=== PATIENT | male | born 1990 | race Caucasian/White ===

== ENCOUNTER 2017-10-17 16:54 | Outpatient (CLI) | payer BC ==
[2017-10-17 17:48] LABS: #Basophils 0.1 thou/uL (0.0-0.2); #Eosinphils 0.5 thou/uL (0.0-0.7); #Lymphocytes 3.1 thou/uL (1.20-3.40); #Monocytes 1.2 thou/uL (0.11-0.59); #Neutrophils 7.1 thou/uL (1.40-6.50); %Basophils 0.8 % (0.0-1.0); %Eosinophils 3.8 % (0.0-10.0); %Lymphocytes 26.3 % (21.0-51.0); %Monocytes 9.6 % (0.0-10.0); Hematocrit 45.9 % (42.0-52.0); Mean Platelet Volume 6.3 fL (7.4-10.4); Red Blood Cell (RBC) Count 4.92 mill/uL (4.70-6.10); White Blood Cell (WBC) Count 11.9 thou/uL (4.8-10.8)
== END 2017-10-17 16:55 | disposition home or self-care (01) ==
LOC: LABBT 16:54
PROVIDERS: ATTEND Orthopaedic Surgery
DX: Z01.812 Encounter for preprocedural laboratory examination (principal); S43.431A Superior glenoid labrum lesion of right shoulder, initial encounter
CPT/HCPCS: 85025

== ENCOUNTER 2017-10-19 05:47 | Day surgery (SDC) | payer BC ==
[2017-10-17 17:11] VITALS: BMI 43.4
[2017-10-19] MEDS ORDERED: CEFAZOLIN/Water 2 GM/20 ML SYRINGE ONE (06:21)
[2017-10-19] MEDS ORDERED: Ropivacaine 0.2% HCl/PF 20 ML ONE (06:43)
[2017-10-19] MEDS ORDERED: Bupivacaine/Epinephrine 0.25% 30 ML VIAL ONE (06:43)
[2017-10-19] MEDS ORDERED: Fentanyl 100 MCG/2 ML VIAL ONE ×2 (06:43→07:22)
[2017-10-19] MEDS ORDERED: Midazolam HCl 2 mg/2 ml Vial ONE (06:43)
[2017-10-19] MEDS ORDERED: Ropivacaine 0.2% 550 ML 550 ML NERVE BLCK SCH (07:22)
[2017-10-19] MEDS ORDERED: traMADol HCl 50 MG TAB PO PRN ×2 (07:22)
[2017-10-19] MEDS ORDERED: Zolpidem Tartrate 5 MG TAB PO PRN (07:22)
[2017-10-19] MEDS ORDERED: Promethazine HCl 25 MG/ML VIAL IM PRN (07:22)
[2017-10-19] MEDS ORDERED: HYDROcodone/Acetaminophen 5/325 mg Tablet PO PRN ×2 (07:22)
[2017-10-19] MEDS ORDERED: Ondansetron HCl/PF 4 MG/2 ML Vial IVP PRN (07:22)
[2017-10-19] MEDS ORDERED: Fentanyl 100 MCG/2 ML VIAL IV PRN (07:23)
[2017-10-19] MEDS ORDERED: Ketorolac Tromethamine 30 MG/ML VIAL IVP SCH (12:00)
--- NOTE | 2017-10-19 12:57 | OP ---
DATE OF PROCEDURE: 10/19/2017 PREOPERATIVE DIAGNOSIS: Right shoulder anterior labral tear/Bankart lesion. POSTOPERATIVE DIAGNOSES: Right shoulder anterior labral tear/Bankart lesion. PROCEDURE PERFORMED: Right shoulder arthroscopy with arthroscopic Bankart repair. SURGEON: Abdullahi Arredondo M.D. EARLY CHILDHOOD EDUCATION COORDINATOR: None. BLOOD LOSS: Minimal. COMPLICATIONS: None. ANESTHESIA: He had general anesthetic, he also had a block. DISPOSITION: He did go to the recovery room in stable condition. INDICATIONS: A 26-year-old male who comes in with multiple episodes of dislocation and at this time wishing to have repair of this anterior labral lesion. DESCRIPTION OF PROCEDURE: After all appropriate consent forms were explained and signed, he was take n back to the operating room and at this time was given general anesthetic. Once the level of anesth esia was appropriate, he was rolled into the left lateral decubitus position with all bony prominence s well-padded. The arm was then suspended with 15 pounds in standard arthroscopic fashion. The [facility] shoulder and upper extremity prepped and draped in the standard surgical fashion. Bony anatomic la ndmarks were drawn out and subacromial space was infiltrated with Marcaine with epinephrine. Posteri or portal was established and the scope was placed into the shoulder joint. Anterior working portal was established using a needle localization technique so that the portal was just above the subscapul david tendon. At this time, diagnostic arthroscopy commenced, the rotator cuff was found to be intact . The biceps tendon was intact. The bicipital sling was intact, subscapularis was intact. Anterior Bankart lesion was noted from approximately 1:30-2:00 o'clock down to 5:30 and glenoid and humeral h ead were in good condition. No loose bodies were noted in the axillary pouch. There was a well-defi lencho anterior inferior glenohumeral ligament as well as middle glenohumeral ligament and posterior lab rum was found to be intact. At this time, a green cannula was placed anteriorly and through this, th e spatula was used to separate the labral tissue from the underlying bone, a rasp was used to get to good bleeding bone and the shaver was used to remove any debris. There was also a chunk of the labru m just inferior to the anterior most portion of the supraglenoid tubercle region. This was shaved do wn. At this time, a secondary cannula was placed in the interval, again, using a needle localization technique and once these 2 portals were made we then proceeded with our repair. Through the anterio r portal, we drilled and placed an [employer] 3 mm suture tacks and once this was done, the 1 stitch out of the 2 sets was pulled up through the secondary portal anterolateral. We then used t he 45 degree suture lasso corkscrew device to grab a large bite of tissue of the capsule and labrum i nferior to replace this and this was then tied in simple fashion pulling up the tissue and creating a nice inferior anterior bumper. Second suture was removed. We then drilled and performed the same p rocedure superior to this; however, this time, we used both sutures in our repair and then we finally drilled and placed the final 1 superiorly again using #1 suture in simple fashion. Once all these k nots had been tied, we had nicely recreated our anterior labrum and anterior bumper and we then made sure there was no debris in the joint. We then removed each cannula to see the humeral head sitting more anatomic than before surgery on the glenoid. We then removed the camera and drained the shoulde r. Portals were closed with nylon sutures. The patient was then awakened and taken to the recovery room in stable condition. All counts were correct at the end of the case and he did receive preopera tive IV antibiotics.
[2017-10-19] MEDS ORDERED: Ondansetron HCl/PF 4 MG/2 ML Vial ONE (14:51)
[2017-10-19] MEDS ORDERED: Propofol 200 MG/20 ML VIAL ONE (14:51)
[2017-10-19] MEDS ORDERED: Lidocaine 1% PF 5 ML VIAL ONE (14:51)
[2017-10-19] MEDS ORDERED: Glycopyrrolate 0.2 MG/ML 5 ML SYRINGE ONE (14:51)
== END 2017-10-19 12:25 | disposition home or self-care (01) ==
LOC: SDC 05:47
PROVIDERS: ATTEND Orthopaedic Surgery
PROC: 0RQJ4ZZ Repair Right Shoulder Joint, Percutaneous Endoscopic Approach (ICD-10-PCS; principal; 2017-10-19)
DX: S43.491A Other sprain of right shoulder joint, initial encounter (principal); S43.31 Subluxation and dislocation of scapula; Z91.040 Latex allergy status; Z98.890 Other specified postprocedural states; Z90.49 Acquired absence of other specified parts of digestive tract; Z90.89 Acquired absence of other organs; Z79.899 Other long term (current) drug therapy
CPT/HCPCS: A4306; C1713; J2001; J2250; J2405; J2704; J2795; J3010; J3370; J7050

== ENCOUNTER 2018-04-24 13:48 | Outpatient (CLI) | payer BC ==
--- NOTE | 2018-04-24 14:26 | RAD ---
FOUR VIEWS LUMBAR SPINE INCLUDING AP AND ALTERAL AND FLEXION AND EXTENSION VIEWS: HISTORY: Back pain, M54.5. FINDINGS: Four views of the lumbar spine demonstrate 5 [id number] lumbar vertebrae. There is also partial lumbarization of the S1 vertebral body. There is no evidence of mauricio- or retrolisthesis seen on flexion or extension views. The L1 vertebral body demonstrates some height loss in the anterior inferior aspect. There is also s ome height loss involving the anterior aspect of the T12 vertebral level. Findings compatible with l ikely old thoracolumbar regions of possible anterior compression fractures. Correlation with MRI may be of use. Some height loss anterior aspect of T12 and L1 levels. POS: [facility]
== END 2018-04-24 13:49 | disposition home or self-care (01) ==
LOC: SCSRAD 13:48
PROVIDERS: ATTEND Family Medicine
DX: M54.5 Low back pain (principal)
CPT/HCPCS: 72120

== ENCOUNTER 2020-03-09 12:25 | Inpatient (IN) | payer BC, OTHER ==
[~2020-03-09 12:25] MED LIST: Iopamidol-370 76% 500 ML 1 ML ONE
[2020-03-09] MEDS ORDERED: Acetaminophen 325 MG TAB ONE (12:58)
[2020-03-09 13:08] LABS: Hemoglobin 16.3 g/dL (14.0-18.0); Mean Corpuscular HGB CONC 33.8 g/dL (32.0-36.0); Mean Corpuscular Hemoglobin 31.5 pg (27.0-31.0); Mean Corpuscular Volume 93.2 fL (78.0-98.0); Mean Platelet Volume 6.5 fL (7.4-10.4); Platelet Count 300 thou/uL (130-400); RBC Distribution Width 12.1 % (11.5-14.5); Red Blood Cell (RBC) Count 5.16 mill/uL (4.70-6.10); White Blood Cell (WBC) Count 24.3 thou/uL (4.8-10.8)
--- NOTE | 2020-03-09 13:21 | RAD ---
CHEST 1 VIEW: Date: 03/09/2020 HISTORY: Shortness of breath. COMPARISON: None. FINDINGS: Lungs are clear. No pneumothorax. No effusion. Cardiac silhouette and mediastinal contours within nor mal limits. IMPRESSION: No acute intrathoracic abnormality. POS: HOME
[2020-03-09 13:23] LABS: Band 7 % (5-11); Lymphocytes 12 % (21-51); MDiff Complete? YES; Monocytes 7 % (0-10); Neutrophil 74 % (42-75); Platelet Morphology Comment Appears Adequate; RBC Morphology Normal
[2020-03-09 13:24] LABS: ALT (SGPT) 60 U/L (8-55); AST (SGOT) 37 U/L (5-34); Albumin 4.6 g/dL (3.5-5.0); Alkaline Phosphatase 56 U/L (40-110); Anion Gap 15 mmol/L (10-20); BUN (Urea Nitrogen) 11 mg/dL (8.9-20.6); Bilirubin, Total 0.4 mg/dL (0.2-1.2); Calc. Creatinine Clearance 0 mL/min (70-130); Calcium 9.9 mg/dL (7.8-10.44); Carbon Dioxide 24 mmol/L (22-29); Chloride 101 mmol/L (98-107); Estimated GFR-MDRD Greater than 90; Globulin 3.7 g/dL (2.4-3.5); Glucose 138 mg/dL (70-105); Potassium 3.6 mmol/L (3.5-5.1); Protein, Total 8.3 g/dL (6.0-8.3); Sodium 136 mmol/L (136-145)
[2020-03-09 13:24] LABS: Bilirubin Negative (Negative); Blood, Urine Negative (Negative); Clarity Clear (Clear); Glucose, Urine (Dipstick) Normal (Negative); Leukocyte Negative Leu/uL (Negative); Nitrite Negative (Negative); Protein, Urine (Dipstick) Negative (Neg-Trace); Urobilinogen Normal mg/dL (Less than 2)
--- NOTE | 2020-03-09 14:02 | CT ---
CT ANGIOGRAM THORAX WITH CONTRAST: (CTA pulmonary angiogram) DATE: 03/09/2020 HISTORY: 29-year-old male with dyspnea TECHNIQUE: IV injection of iodinated contrast. Scan acquisition timing attempted to coincide with iodinated contrast bolus reaching maximal density in pulmonary arteries. 3-D MIP reconstructions. FINDINGS: Approximately 4 x 2.5 x 3 cm left lower pole thyroid nodule mildly displaces the trachea to the right . Liver: Enlarged and diffusely low attenuation representing fatty liver. No thoracic aortic aneurysm or dissection. Lungs are clear. No pneumothorax or pleural effusion. No pericardial effusion or cardiomegaly. Noncalcified subcarinal mediastinal lymph node enlargement in aggregate measuring approximately 1.5 x 3 x 5 cm. Inadequate volume of IV contrast material in pulmonary arteries such that it is not possible to evalu ate for pulmonary arteries involving the proximal, mid, and distal branches of the left and right main pulmonary arteries. Body habitus contributes to poor resolution of the internal contents of thes e arteries. No thrombus identified in the pulmonic trunk or in the proximal portions of the left main bilateral p ulmonary arteries. Mid and distal portions are poorly evaluated, especially with streak artifact from adjacent dense IV contrast bolus in superior vena cava. No cardiomegaly or hilar lymphadenopathy . S-shaped scoliosis of upper and mid thoracic spine. No vertebral anomalies identified. IMPRESSION: 1) nondiagnostic for pulmonary thromboembolism. Insufficient IV contrast material in pulmonary arteri es. No saddle embolus. 2) hepatomegaly and hepatic steatosis. 3) left thyroid nodule. Because of body habitus, it is doubtful that this would be accessible to ultr asound-guided fine-needle aspiration, or even to ultrasound visualization. 4) scoliosis
[2020-03-09] MEDS ORDERED: cefTRIAXone\\ROCEPHIN 1 GM VIAL ONE (14:25)
[2020-03-09] MEDS ORDERED: Azithromycin 500 MG VIAL ONE (14:25)
[2020-03-09] MEDS ORDERED: Acetaminophen 325 MG TAB PO PRN ×2 (15:05→17:44)
[2020-03-09 15:08] LABS: INR-International Normal Ratio 0.9; PTT 28.6 SEC (22.9-36.1); Prothrombin Time 12.2 SEC (12.0-14.7)
[2020-03-09 15:09] LABS: D-Dimer Test 0.5 *mcg/mL (0.27-0.43)
[2020-03-09] MEDS ORDERED: Senokot S 8.6-50 MG TAB PO PRN (15:09)
[2020-03-09] MEDS ORDERED: Ondansetron PF 4 MG/2 ML Vial IVP PRN (15:09)
[2020-03-09 16:05] LABS: Amphetamine Not Detected (NotDetected); Barbiturates Screen Not Detected (NotDetected); Benzodiazepine Screen Not Detected (NotDetected); Cocaine Metabolite Screen Not Detected (NotDetected); Medtox Control Line Valid? VALID (VALID); Medtox Reader # READER 1; Methadone Not Detected (NotDetected); Methamphetamine Not Detected (NotDetected); Opiate Screen Not Detected (NotDetected); Oxycodone Screen Not Detected (NotDetected); Phencyclidine (PCP) Not Detected (NotDetected); THC/Cannabinoid Screen Not Detected (NotDetected); Tricyclic Screen Not Detected (NotDetected)
[2020-03-09 16:14] LABS: Lactic Acid 1.9 mmol/L (0.5-2.2)
[2020-03-09 17:02] VITALS: BMI 44.6
[2020-03-09] MEDS: Sodium Chloride 0.9% 1,000 ML IV SCH (17:09)
[2020-03-09] MEDS ORDERED: Morphine 4 MG/ML VIAL SLOW IVP SCH (17:45)
[2020-03-09] MEDS ORDERED: Cyclobenzaprine 10 MG TAB PO SCH (18:00)
[2020-03-09] MEDS ORDERED: Piperacillin/Tazobactam 3.375 GM in Sodium Chloride 0.9% 100 ML IVPB SCH (18:00)
[2020-03-09] MEDS: Enoxaparin Sodium 120 MG/0.8 ML SYRINGE SC SCH (18:14)
[2020-03-09] MEDS: Enoxaparin Sodium 30 MG/0.3 ML SYRINGE SC SCH (18:15)
[2020-03-09 19:21] LABS: PTT 26.4 SEC (22.9-36.1)
[2020-03-09 19:22] LABS: INR-International Normal Ratio 0.9; Prothrombin Time 12.2 SEC (12.0-14.7)
[2020-03-09 19:23] LABS: D-Dimer Test 0.45 *mcg/mL (0.27-0.43)
[2020-03-09 19:27] LABS: Troponin I Less than 0.010 ng/mL (< 0.028)
--- NOTE | 2020-03-09 21:26 | ULT ---
EXAM: Bilateral lower extremity venous Doppler US HISTORY: Dyspnea, elevated d-dimer FINDINGS: Grayscale, color-flow, Doppler evaluation, spectral analysis of the bilateral lower extremities venou s structures is performed with 2-D imaging. The bilateral common femoral, superficial femoral, popliteal, posterior tibial, proximal greater saphenous and profunda femoral veins are imaged. There is normal luminal compressibility, flow, and augmentation in the visualized deep venous structu res of the bilateral lower extremities. IMPRESSION: No evidence of a deep vein thrombosis in either lower extremity.
[2020-03-09] MEDS: HYDROcodone/Acetaminophen 7.5/325 mg Tablet PO PRN (21:32)
[2020-03-09] MEDS: Cyclobenzaprine 10 MG TAB PO SCH (21:33)
--- NOTE | 2020-03-09 21:52 | PDOC.EVN ---
Event Note - Event Note Event Note: Nursing reported ST elevation on tele strip, denies any chest pain or sob. Has no significant cardiac history. Will get 12 lead EKG.
[2020-03-09] MEDS ORDERED: Famotidine 20 MG TAB PO SCH (22:30)
[2020-03-09 23:30] LABS: Troponin I Less than 0.010 ng/mL (< 0.028)
[2020-03-09] MEDS: Piperacillin/Tazobactam 3.375 GM in Sodium Chloride 0.9% 100 ML IVPB SCH (23:40)
--- NOTE | 2020-03-10 00:18 | HP ---
CHIEF COMPLAINT: Shortness of breath. HISTORY OF PRESENT ILLNESS: The patient is a 29-year-old male with really no past medical history who presents to the hospital with complaints of sharp chest pain and also shortness of breath x1 day. The patient stated that he lifted about 65 pounds of some sand bags, I believe it was on Tuesday, started having pain on Tuesday evening, described as a sharp pain in his chest and also got very short of breath. When I talked more to the patient, the patient stated it seemed like he could not take a deep breath that is what he was having shortness of breath. The patient stated he had some chills last night and also had a low-grade fever of 99.1, however, was found to have a fever of 101 in the ER. He denies any sick contacts. He does work, however he normally meets clients, however, for the past month or so he has not been talking with any clients, as everything has been done through the phone. He also lives with his girlfriend. Denies any recent travel. He denies her being ill also. PAST MEDICAL HISTORY: He has a history of ADHD. PAST SURGICAL HISTORY: He has had a tonsillectomy and adenoids removed, appendectomy, and shoulder surgery. ALLERGIES: NO KNOWN DRUG ALLERGIES. MEDICATIONS: He takes 5 mg b.i.d. Adderall as needed. SOCIAL HISTORY: Denies any smoking history. Occasional alcohol use. No drug use. He is a full code. Lives with his girlfriend. FAMILY HISTORY: Mother had renal carcinoma. Father had hypertension and hyperlipidemia. REVIEW OF SYSTEMS: All negative except for the ones mentioned above in the HPI. PHYSICAL EXAMINATION: VITAL SIGNS: Temperature of 100, heart rate of 120, respirations of 20, saturation 96% on room air, blood pressure 138/94. GENERAL: He is awake, alert, and oriented x3. Appears a little anxious. CV: S1, S2 present. Tachycardic. LUNGS: Clear to auscultation. No rhonchi or wheezes noted. Chest wall, no pain reproducible upon mild and deep palpation. ABDOMEN: Obese, bowel sounds are present x2. No pain upon palpation either. No epigastric pain either. EXTREMITIES: No edema. Pedal pulses are present x2. NEUROVASCULAR: There are no focal deficits noted. SKIN: No cuts, lesions or bruises noted. LABORATORY DATA: WBC of 24.3, hemoglobin of 16.3, hematocrit of 48.1, platelets of 300. No bands, lymphocytes are low at 12. Chemistry: Sodium 136, potassium of 3.6, BUN of 11, creatinine 0.85. LFTs: AST 37, ALT 60. Lactic acid is 3.1, which went down to 1.9. TSH is 0.7. BNP is less than 10. The patient did have a CTA for rule out PE. The CTA did not show any acute PE. He did have a left thyroid nodule and also has hepatomegaly from hepatic steatosis. His CTA was nonconclusive for possible PE due to inappropriate or insufficient IV contrast material in the pulmonary arteries, but no saddle embolus was noted. ASSESSMENT AND PLAN: The patient is a 29-year-old male who presents to the hospital with sudden onset of chest pain and shortness of breath. 1. Shortness of breath. The patient's pain is sudden in onset, sharp in nature. He is not hypoxic. He had a fever also, of 101. Denies any cough. His D-dimer is mildly elevated. The patient is obese. He is tachycardic also and the CTA was nondiagnostic for pulmonary embolism rule out. At this time, I am going to get lower extremity Dopplers. We will get troponin and also I am going to anticoagulate him prophylactically until maybe we can repeat the CT scan. There was a concern for possible COVID. He does not have x-ray or CT findings of any kind of patterns of possible infectious. Also COVID test has been sent out and is pending. The patient denies any orthopnea or PND. His BNP is normal, but however in obese patients, not really conclusive. However, this was sudden in onset and the patient feels that he is short of breath because he is having significant pain when he takes a deep breath, which is very pleuritic in nature and that this pain is not reproducible. 2. Obesity. The patient has been discussing with family physician about weight loss, exercise. He is also noted to have hepatic steatosis and the patient is aware of that. 3. Left thyroid nodule. I have discussed this with the patient. He will follow up with his primary with possible ultrasound. 4. Sepsis, unclear etiology at this time. Urine looks normal. CT does not show any acute pneumonia. His influenza test is negative. His COVID is pending. Blood cultures have been sent. He does have an elevated white count however he does not have any bands or neutrophils. Possible this could just be reactive, maybe some viral etiology. 5. Deep vein thrombosis prophylaxis. Again, I am going to anticoagulate him full dose for possible pulmonary embolism. Job ID: [id number]
[2020-03-10] MEDS: HYDROcodone/Acetaminophen 7.5/325 mg Tablet PO PRN ×5 (02:32→23:03)
[2020-03-10 05:24] LABS: #Basophils 0.1 thou/uL (0.0-0.2); #Lymphocytes 2.3 thou/uL (1.20-3.40); #Monocytes 2.4 thou/uL (0.11-0.59); #Neutrophils 20.6 thou/uL (1.40-6.50); %Basophils 0.2 % (0.0-1.0); %Eosinophils 0.1 % (0.0-10.0); %Lymphocytes 8.9 % (21.0-51.0); %Monocytes 9.5 % (0.0-10.0); %Neutrophils 81.3 % (42.0-75.0); Hemoglobin 14.5 g/dL (14.0-18.0); Mean Corpuscular HGB CONC 32.6 g/dL (32.0-36.0); Mean Corpuscular Hemoglobin 30.6 pg (27.0-31.0); Mean Corpuscular Volume 93.9 fL (78.0-98.0); Mean Platelet Volume 6.7 fL (7.4-10.4); Platelet Count 266 thou/uL (130-400); RBC Distribution Width 12.3 % (11.5-14.5); Red Blood Cell (RBC) Count 4.74 mill/uL (4.70-6.10); White Blood Cell (WBC) Count 25.3 thou/uL (4.8-10.8)
[2020-03-10] MEDS: Piperacillin/Tazobactam 3.375 GM in Sodium Chloride 0.9% 100 ML IVPB SCH ×4 (05:59→22:56)
[2020-03-10] MEDS: Sodium Chloride 0.9% 1,000 ML IV SCH ×2 (05:59→16:56)
[2020-03-10] MEDS: Enoxaparin Sodium 30 MG/0.3 ML SYRINGE SC SCH ×2 (06:00→18:06)
[2020-03-10] MEDS: Enoxaparin Sodium 120 MG/0.8 ML SYRINGE SC SCH ×2 (06:00→18:09)
[2020-03-10 06:05] LABS: ALT (SGPT) 42 U/L (8-55); AST (SGOT) 21 U/L (5-34); Alkaline Phosphatase 41 U/L (40-110); Anion Gap 13 mmol/L (10-20); BUN (Urea Nitrogen) 8 mg/dL (8.9-20.6); Bilirubin, Total 1.3 mg/dL (0.2-1.2); Calc. Creatinine Clearance 263 mL/min (70-130); Calcium 9.1 mg/dL (7.8-10.44); Carbon Dioxide 26 mmol/L (22-29); Chloride 99 mmol/L (98-107); Estimated GFR-MDRD Greater than 90; Globulin 3.2 g/dL (2.4-3.5); Glucose 140 mg/dL (70-105); Potassium 3.9 mmol/L (3.5-5.1); Protein, Total 7.2 g/dL (6.0-8.3); Sodium 134 mmol/L (136-145)
[2020-03-10] MEDS ORDERED: Vancomycin HCl 1.5 GM in Sodium Chloride 0.9% 250 ML 300 ML IVPB SCH (09:00)
[2020-03-10] MEDS ORDERED: Enoxaparin Sodium 40 MG/0.4 ML SYRINGE SC SCH (09:00)
[2020-03-10] MEDS: Cyclobenzaprine 10 MG TAB PO SCH ×3 (09:14→20:28)
[2020-03-10] MEDS: Famotidine 20 MG TAB PO SCH ×2 (09:14→20:28)
[2020-03-10 10:21] LABS: SARS-CoV-2 MS2 Positive; SARS-CoV-2 N Gene Negative; SARS-CoV-2 S Gene Negative; SARS-CoV-2 orf1ab Negative
--- NOTE | 2020-03-10 13:03 | PDOC.HOSPP ---
- Subjective Encounter Date: 03/10/20 Encounter Time: 13:00 Subjective: pt up in bed states he feels much better. - Objective Vital Signs & Weight: Vital Signs (12 hours) Temp Pulse Resp BP BP Pulse Ox 03/10/20 11:27 99 F 111 H 24 H 140/97 H 97 03/10/20 09:30 100.0 F H 117 H 20 138/87 96 03/10/20 02:40 99.7 F H 117 H 26 H 134/87 97 03/10/20 01:04 96 Weight Weight 328 lb 15.933 oz I&O: 03/09/20 03/10/20 03/11/20 06:59 06:59 06:59 Intake Total 3465 Output Total 300 Balance 3165 Result Diagrams: 03/10/20 05:04 03/10/20 05:04 Hospitalist ROS - Review of Systems Cardiovascular: denies: chest pain, palpitations, orthopnea, paroxysmal noc. dyspnea, edema, light headedness, other Gastrointestinal: denies: nausea, vomiting, abdominal pain, diarrhea, constipation, melena, hematochezia, other Genitourinary: denies: dysuria, frequency, incontinence, hematuria, retention, other - Medication Medications: Active Medications Generic Name Dose Route Start Last Admin Trade Name Freq PRN Reason Stop Dose Admin Hydrocodone Bitart/Acetaminophen 1 tab 03/09/20 17:43 03/10/20 09:14 [place] 7.5/325 PO 1 tab Q4H PRN Administration Mild Pain (1-3) Cyclobenzaprine HCl 10 mg 03/09/20 21:00 03/10/20 09:14 Flexeril PO 10 mg TID JUANITA Administration Enoxaparin Sodium 120 mg 03/09/20 18:00 03/10/20 06:00 Lovenox SC 120 mg 0600,1800 JUANITA Administration Enoxaparin Sodium 30 mg 03/09/20 18:00 03/10/20 06:00 Lovenox SC 30 mg 0600,1800 JUANITA Administration Famotidine 20 mg 03/10/20 09:00 03/10/20 09:14 Pepcid PO 20 mg BID JUANITA Administration Sodium Chloride 1,000 mls @ 100 mls/hr 03/09/20 15:15 03/10/20 05:59 Normal Saline 0.9% IV 1,000 mls .Q10H JUANITA Administration Vancomycin HCl 2 gm/ Sodium 500 mls @ 250 mls/hr 03/09/20 18:00 03/10/20 02: 34 Chloride IVPB 500 mls 0200,1000,1800 JUANITA Administration Piperacillin Sod/Tazobactam 100 mls @ 200 mls/hr 03/09/20 23:00 03/10/20 05: 59 Sod 3.375 gm/ Sodium Chloride IVPB 100 mls 0500,1100,1700,2300 JUANITA Administration - Exam Heart: negative: RRR, no murmur, no gallops, no rubs, normal peripheral pulses, irregular, diminshed peripheral pulses, murmur present, II/IV, III/IV Respiratory: negative: CTAB, no wheezes, no rales, no ronchi, normal chest expansion, no tachypnea, normal percussion, rales, rhonchi, tachypneic, wheezes Gastrointestinal: negative: soft, non-tender, non-distended, normal bowel sounds , no palpable masses, no hepatomegaly, no splenomegaly, no bruit, no guarding, no rigidity, tender to palpation, distended, diminished bowl sounds, voluntary guarding Extremities: negative: no cyanosis, no clubbing, no edema, 1+ LE edema, 2+ LE edema, clubbing Hosp A/P (1) Sepsis Code(s): A41.9 - SEPSIS, UNSPECIFIED ORGANISM Status: Acute (2) Leukocytosis Code(s): D72.829 - ELEVATED WHITE BLOOD CELL COUNT, UNSPECIFIED Status: Acute (3) Obesity Code(s): E66.9 - OBESITY, UNSPECIFIED Status: Acute - Plan will continue broad spectrum abx. will get a echo, pt's ekg indicates [id number]. will repeat cta xu. Doppler negative. pt's chest pain now is dull.
[2020-03-10 13:12] LABS: HEX PHOS LA Tube 1 38.2 SEC; HEX PHOS LA Tube 2 33.4 SEC; Hexagonal Phospholipid Neut 4.8 SEC (0-8.0); Protein C Activity 89 % (78-152)
[2020-03-10 13:40] LABS: Factor VIII Test 251.1 % ACTIVE (56-157)
[2020-03-10 17:38] LABS: Vancomycin, Trough 5.8 ug/mL
--- NOTE | 2020-03-10 23:30 | CON ---
DATE OF CONSULTATION: 03/10/2020 REASON FOR CONSULTATION: Dyspnea, fever, neutrophilia. HISTORY OF PRESENT ILLNESS: A 29-year-old with history of obesity, obstructive sleep apnea, in his usual state until about 2 days before admission when he developed progressively worsening dyspnea, this was of gradual onset. He did not have any cough associated with it. He does have cough in the past which he blames on rhinitis but over the past recent days, he did not have any major symptoms of cough. Did not have any sore throat. No loss of sense of smell or taste. Did not have any headaches. No visual symptoms. No joint pains. No abdominal pain or diarrhea. No genitourinary symptoms. No bleeding. He eventually came to the emergency room. He was tachycardic on arrival at 130, respiratory rate 20, temperature 101, O2 saturations were 98. Initial findings included normal lung exam, normal heart exam except for tachycardia. Abdomen is normal. Did not have any edema. The patient had a chest CT done yesterday, which showed 4 x 2.5 x 3 cm left lower pole thyroid nodule which mildly displaced the trachea to the right. There is evidence of fatty liver, noncalcified subcarinal mediastinal lymph node measuring 1.5 x 3 x 5 cm. The contrast given was not sufficient to opacify the pulmonary arteries, so was a nondiagnostic study for pulmonary thromboembolism. Currently, Mr. Munoz is still mildly dyspneic. He denies any other symptoms in a 10-point review. MEDICAL HISTORY: Obstructive sleep apnea, obesity, appendectomy, rotator cuff tear with repair. SOCIAL HISTORY: He lives with his girlfriend. Never did smoke. No drug use. Does not vape either. No significant travel history recently. He does not have pets. 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 CURRENT MEDICATIONS: 1. Tylenol. 2. [place]. 3. Flexeril. 4. Lovenox. 5. Pepcid. 6. Zofran. 7. Zosyn. 8. Vancomycin. PHYSICAL EXAMINATION: VITAL SIGNS: T-max 100, now 99.1; BP 140/92, pulse 120, respirations 20, O2 saturation 96, 2 L nasal cannula. He has remained tachycardic throughout the hospital stay. SKIN: Normal. The patient has a peripheral IV access. He is urinating in the toilet. No lymphadenopathy. HEENT: Ocular movements conjugate. Oral cavity normal. Teeth in very good shape. NECK: Supple. No jugular vein distention. LUNGS: Symmetric, clear breath sounds. HEART: S1 and S2, regular rate. No S3 or S4. ABDOMEN: Soft, not distended or tender. No ascites. No bladder distention. No joint inflammatory activity. EXTREMITIES: Moves extremities equally. Cognitive function appears to be intact. LABORATORY DATA: White cell count 25,000, hemoglobin 14.5, platelets 266 with 81% neutrophils. Chemistry with a bilirubin 1.3, transaminases and alkaline phosphatase normal. Troponin normal. CRP 7.86, albumin 4.0. TSH normal. Urinalysis was essentially normal. Toxic screen was negative. The patient had normal lymphocyte count 2.3. ASSESSMENT: 1. Obesity. History is obstructive sleep apnea, now with new onset of dyspnea with hypoxemia at rest, requiring oxygen supplementation. 2. Leukocytosis with predominance of mature neutrophils, normal lymphocyte count. 3. Normal CT of the chest in terms of absence of infiltrates. CT was done to rule out pulmonary embolism that was not possible due to technical issues, thyroid nodule and then mediastinal lymphadenopathy. DISCUSSION: Differential diagnosis includes an acute viral infection, COVID-19 has been considered. The absence of lymphocytopenia or infiltrates in the CT scan make it quite unlikely in the face of a negative PCR. For COVID-19 to be associated with hypoxemia, pulmonary infiltrates need to be present. The other possibilities would be other types of viral infection including EBV, CMV, other respiratory viruses. Cardiac reason for dyspnea with cardiac shunt is a possibility, as well as cardiomyopathy. We will need to check his echocardiogram. Blood cultures are pending. Hyperthyroidism seems to be unlikely in view of his normal TSH. The reason for mediastinal lymphadenopathy is not clear, but may be related to potential viral infection, malignancy, for example a lymphoma, particularly Hodgkin's disease. Other metastatic processes such as germinal cell cancer would be less likely. Finally, venous thromboembolism has not been ruled out in view of the technically inadequate study, so we may have to either repeat the study or ventilation-perfusion scan to rule out pulmonary embolism. An auto-immune process/vasculitis appears less likely but may have to evaluate auto-antibodies depending on clinical progress. Job ID: [id number] [facility]
[2020-03-11] MEDS: Sodium Chloride 0.9% 1,000 ML IV SCH ×3 (02:37→23:51)
[2020-03-11] MEDS: Piperacillin/Tazobactam 3.375 GM in Sodium Chloride 0.9% 100 ML IVPB SCH (05:25)
[2020-03-11] MEDS: Enoxaparin Sodium 120 MG/0.8 ML SYRINGE SC SCH ×2 (05:26→18:32)
[2020-03-11] MEDS: Enoxaparin Sodium 30 MG/0.3 ML SYRINGE SC SCH ×2 (05:26→18:32)
[2020-03-11] MEDS: HYDROcodone/Acetaminophen 7.5/325 mg Tablet PO PRN ×2 (05:27→23:47)
[2020-03-11 07:11] LABS: #Lymphocytes 1.5 thou/uL (1.20-3.40); #Monocytes 2.3 thou/uL (0.11-0.59); #Neutrophils 17.5 thou/uL (1.40-6.50); %Basophils 0.2 % (0.0-1.0); %Eosinophils 0.2 % (0.0-10.0); %Lymphocytes 7.1 % (21.0-51.0); %Monocytes 10.6 % (0.0-10.0); Hemoglobin 12.6 g/dL (14.0-18.0); Mean Corpuscular HGB CONC 32.3 g/dL (32.0-36.0); Mean Corpuscular Hemoglobin 30.6 pg (27.0-31.0); Mean Corpuscular Volume 94.5 fL (78.0-98.0); Mean Platelet Volume 6.6 fL (7.4-10.4); Platelet Count 225 thou/uL (130-400); RBC Distribution Width 12.1 % (11.5-14.5); Red Blood Cell (RBC) Count 4.13 mill/uL (4.70-6.10); White Blood Cell (WBC) Count 21.3 thou/uL (4.8-10.8)
[2020-03-11 07:40] LABS: ALT (SGPT) 31 U/L (8-55); AST (SGOT) 15 U/L (5-34); Albumin 3.7 g/dL (3.5-5.0); Alkaline Phosphatase 39 U/L (40-110); Anion Gap 12 mmol/L (10-20); BUN (Urea Nitrogen) 9 mg/dL (8.9-20.6); Bilirubin, Total 0.7 mg/dL (0.2-1.2); Calc. Creatinine Clearance 279 mL/min (70-130); Calcium 9.5 mg/dL (7.8-10.44); Carbon Dioxide 28 mmol/L (22-29); Chloride 99 mmol/L (98-107); Estimated GFR-MDRD Greater than 90; Globulin 3.3 g/dL (2.4-3.5); Glucose 120 mg/dL (70-105); Potassium 3.9 mmol/L (3.5-5.1); Sodium 135 mmol/L (136-145)
[2020-03-11] MEDS: Famotidine 20 MG TAB PO SCH ×2 (08:34→19:58)
[2020-03-11] MEDS: Cyclobenzaprine 10 MG TAB PO SCH ×3 (08:34→19:58)
--- NOTE | 2020-03-11 10:12 | CT ---
CT ANGIOGRAM OF THE CHEST: HISTORY: Shortness of breath. Evaluate for PE. Negative COVID test. COMPARISON: 03/09/2020. TECHNIQUE: CT angiogram of the chest is performed in the axial plane. Three-dimensional reformatted images are s ubmitted for interpretation. FINDINGS: Mediastinum: Redemonstration of a left thyroid lobe nodule. No mass or hematoma. Subcarinal soft tiss ue fullness which is in part due to the esophagus. Nevertheless, there appears to be enlarged subcarinal lymph node measuring 2.5 x 1.7 cm. Heart: Heart size is normal. There is moderate pericardial fluid. The degree of pericardial fluid has progressed since the previous exam. Aorta: No aneurysm or dissection . Upper solid abdominal viscera: Diffuse hypoattenuation of liver, compatible with hepatic steatosis. Trachea and central bronchi: Patent. Pleural spaces: Interval development of a moderate left-sided pleural effusion. No significant right- sided pleural fluid. Lung parenchyma: Overall, lung volumes are diminished which may represent a poor inspiratory effort. Consolidation in both lower lobes, left greater than right. There are air bronchograms in the left lower lobe. Correlate for atelectasis, pneumonia or aspiration. Pneumothorax: None. Osseous structures: No lytic or blastic lesions. Pulmonary arteries:Limited evaluation of the pulmonary arterial system due to timing of contrast bolu s. Adequate contrast opacification of the pulmonary arterial system to the level of the distal central pulmonary arteries. Limited evaluation of the lobar, segmental and subsegmental arteries due to timing of contrast bolus. No obvious central pulmonary artery embolism. IMPRESSION: 1. Redemonstration of a left thyroid lobe nodule. Due to location of the nodule and body habitus, ult rasound-guided fine-needle aspiration is limited. 2. Persistent hepatomegaly and hepatic steatosis. 3. Interval development of bilateral pleural effusions, left greater than right. Interval consolidati on of the left lower lobe which may represent atelectasis, pneumonia or aspiration. 4. Subcarinal lymphadenopathy which is presumed to be reactive. 5. Interval development of moderate pericardial fluid. 6. Limited evaluation the pulmonary arterial system due to timing of bolus. No obvious central pulmon debbi artery embolism. Transcribed Date/Time: 03/11/2020 10:33 AM
[2020-03-11] MEDS ORDERED: Iopamidol-370 76% 500 ML 1 ML ONE (10:17)
[2020-03-11] MEDS: cefTRIAXone\\ROCEPHIN 2 GM in Sodium Chloride 0.9% 100 ML IVPB SCH (11:36)
[2020-03-11 14:18] LABS: Complement-C4 31.4 mg/dL (15-53)
[2020-03-11 17:33] LABS: SARS-CoV-2 MS2 Positive; SARS-CoV-2 N Gene Negative; SARS-CoV-2 S Gene Negative; SARS-CoV-2 orf1ab Negative
[2020-03-11 17:36] LABS: ANA Symphony (Qualitative) Negative (Negative); ANA Symphony (Quantitative) 0.2 Ratio (< 0.7 Negative); dsDNA IgG Antibody 0.8 IU/mL (<10 Negative)
[2020-03-11 17:52] LABS: Cardiolipin IgA Ab 2.1 APL-U/mL (<14 Negative); Cardiolipin IgG Ab 0.8 GPL-U/mL (<10 Negative); Cardiolipin IgM Ab 0.8 MPL-U/mL (<10 Negative); EliA APS New Method **** NEW METHOD ****
[2020-03-11 17:54] LABS: Vancomycin, Trough 6.6 ug/mL
--- NOTE | 2020-03-11 18:15 | PRG ---
DATE OF SERVICE: 03/11/2020 SUBJECTIVE: Still quite dyspneic at rest, cannot even lay down, now without feeling short of breath, so he has to sleep sitting up. He denies any abdominal pain. No dysuria. No diarrhea. No joint symptoms. No back pain. OBJECTIVE: VITAL SIGNS: T-max 100.9, BP 139/80, pulse 125 consistently, his O2 sats have dropped a bit to 91 to 93 with O2 supplementation 1 L nasal cannula. GENERAL: He is oriented. HEENT: Ocular movements conjugate. LUNGS: With diminished breath sounds at bases. HEART: S1 and S2. Regular rate. ABDOMEN: Soft, not distended. EXTREMITIES: No joint inflammatory activity. No edema. LABORATORY DATA: White cell count is 21,000, hemoglobin 12.6, and platelets 225 with 82% neutrophils, 10% monocytes, and the lymphocytes are 1.5. D-Dimer 0.45. Chemistry: Sodium 135, creatinine 0.84, alkaline phosphatase 39, and albumin 3.7. Blood cultures, no growth for 48 hours. Respiratory virus PCR negative. Repeat CT of chest with angiogram this time with a subcarinal soft tissue fullness, probably an enlarged lymph node, moderate pericardial fluid, hepatic steatosis, moderate left-sided pleural effusion. No right-sided pleural effusion. The patient has a consolidation of both lower lobes, left greater than right. Air bronchograms on the left side. ASSESSMENT: Obesity and obstructive sleep apnea in the past with now what appears to be a pneumonia with a left-sided pleural effusion, possibility of empyema is considered. COVID will be checked again. We will switch him to Rocephin and levofloxacin. Consult Pulmonary. May need a thoracentesis. Pericardial fluid in the echocardiogram was trivial. The EF was 55% to 60%. Job ID: [id number] MTDD
[2020-03-11 19:25] LABS: Strep pneumo Urine Ag NEGATIVE (NEGATIVE)
[2020-03-11] MEDS ORDERED: Doxycycline 100 MG CAP PO SCH (21:00)
[2020-03-12 05:14] LABS: #Basophils 0.1 thou/uL (0.0-0.2); #Lymphocytes 2.1 thou/uL (1.20-3.40); #Monocytes 2.2 thou/uL (0.11-0.59); #Neutrophils 16.8 thou/uL (1.40-6.50); %Basophils 0.4 % (0.0-1.0); %Eosinophils 0.1 % (0.0-10.0); %Lymphocytes 9.8 % (21.0-51.0); %Monocytes 10.4 % (0.0-10.0); %Neutrophils 79.4 % (42.0-75.0); Hemoglobin 11.7 g/dL (14.0-18.0); Mean Corpuscular HGB CONC 32.3 g/dL (32.0-36.0); Mean Corpuscular Hemoglobin 30.6 pg (27.0-31.0); Mean Corpuscular Volume 94.8 fL (78.0-98.0); Mean Platelet Volume 6.8 fL (7.4-10.4); Platelet Count 245 thou/uL (130-400); RBC Distribution Width 12.2 % (11.5-14.5); Red Blood Cell (RBC) Count 3.83 mill/uL (4.70-6.10); White Blood Cell (WBC) Count 21.2 thou/uL (4.8-10.8)
--- NOTE | 2020-03-12 05:56 | PDOC.HOSPP ---
- Subjective Encounter Date: 03/12/20 Encounter Time: 10:15 Subjective: pt states he feels much better - Objective Vital Signs & Weight: Vital Signs (12 hours) Temp Pulse Resp BP Pulse Ox 03/12/20 03:05 99.4 F 100 21 H 154/86 H 94 L 03/11/20 23:25 99.6 F 116 H 22 H 151/91 H 93 L 03/11/20 20:00 100.2 F H 124 H 18 156/89 H 95 Weight Weight 328 lb 15.933 oz I&O: 03/10/20 03/11/20 03/12/20 06:59 06:59 06:59 Intake Total 3465 4400 6330 Output Total 300 2850 900 Balance 3165 1550 5430 Result Diagrams: 03/12/20 04:40 03/11/20 06:54 Hospitalist ROS - Review of Systems Respiratory: reports: shortness of breath Cardiovascular: reports: chest pain. denies: palpitations, orthopnea, paroxysmal noc. dyspnea, edema, light headedness, other Gastrointestinal: denies: nausea, vomiting, abdominal pain, diarrhea, constipation, melena, hematochezia, other Genitourinary: denies: dysuria, frequency, incontinence, hematuria, retention, other - Medication Medications: Active Medications Generic Name Dose Route Start Last Admin Trade Name Freq PRN Reason Stop Dose Admin Hydrocodone Bitart/Acetaminophen 1 tab 03/09/20 17:43 03/11/20 23:47 [place] 7.5/325 PO 1 tab Q4H PRN Administration Mild Pain (1-3) Cyclobenzaprine HCl 10 mg 03/09/20 21:00 03/11/20 19:58 Flexeril PO 10 mg TID JUANITA Administration Enoxaparin Sodium 120 mg 03/09/20 18:00 03/11/20 18:32 Lovenox SC 120 mg 0600,1800 JUANITA Administration Enoxaparin Sodium 30 mg 03/09/20 18:00 03/11/20 18:32 Lovenox SC 30 mg 0600,1800 JUANITA Administration Famotidine 20 mg 03/10/20 09:00 03/11/20 19:58 Pepcid PO 20 mg BID JUANITA Administration Sodium Chloride 1,000 mls @ 100 mls/hr 03/09/20 15:15 03/11/20 23:51 Normal Saline 0.9% IV Not Given .Q10H JUANITA Ceftriaxone Sodium 2 gm/ 100 mls @ 200 mls/hr 03/11/20 11:00 03/11/20 11:36 Sodium Chloride IVPB 100 mls Q24HR JUANITA Administration Levofloxacin 750 mg/ Device 150 mls @ 100 mls/hr 03/12/20 02:00 03/12/20 02: 10 IVPB 150 mls Q24HR JUANITA Administration Sodium Chloride 10 ml 03/10/20 21:00 03/11/20 19:58 Flush - Normal Saline IVF Not Given Q12HR JUANITA - Exam Neck: negative: supple, symmetric, no JVD, no thyromegaly, no lymphadenopathy, no carotid bruit, JVD Heart: negative: RRR, no murmur, no gallops, no rubs, normal peripheral pulses, irregular, diminshed peripheral pulses, murmur present, II/IV, III/IV Respiratory - other findings: decrease breath sounds to left lower lung Gastrointestinal: negative: soft, non-tender, non-distended, normal bowel sounds , no palpable masses, no hepatomegaly, no splenomegaly, no bruit, no guarding, no rigidity, tender to palpation, distended, diminished bowl sounds, voluntary guarding Hosp A/P (1) Sepsis Code(s): A41.9 - SEPSIS, UNSPECIFIED ORGANISM Status: Acute (2) Leukocytosis Code(s): D72.829 - ELEVATED WHITE BLOOD CELL COUNT, UNSPECIFIED Status: Acute (3) Obesity Code(s): E66.9 - OBESITY, UNSPECIFIED Status: Acute - Plan will continue broad spectrum abx. will get a echo, pt's ekg indicates s1q3t3. will repeat cta xu. Doppler negative. pt's chest pain now is dull. 5/[address] not great study to rule out PE. however he now has infiltrate and effusion to left lung. With his elevated wbc possible empyema. will await ID recommendation. echo small effusion. HINA sent.
[2020-03-12] MEDS: Sodium Chloride 0.9% 1,000 ML IV SCH ×2 (06:09→18:01)
[2020-03-12] MEDS: Enoxaparin Sodium 30 MG/0.3 ML SYRINGE SC SCH (08:08)
[2020-03-12] MEDS ORDERED: Enoxaparin Sodium 40 MG/0.4 ML SYRINGE SC SCH (08:15)
[2020-03-12] MEDS: Cyclobenzaprine 10 MG TAB PO SCH ×3 (08:16→20:08)
[2020-03-12] MEDS: Famotidine 20 MG TAB PO SCH ×2 (08:16→20:08)
[2020-03-12] MEDS: methylPREDNISolone Sod Succ 40 MG VIAL IVP SCH ×3 (08:16→20:07)
[2020-03-12] MEDS: Enoxaparin Sodium 120 MG/0.8 ML SYRINGE SC SCH ×2 (08:16→18:17)
[2020-03-12 08:37] LABS: EBV VCA IgM <36.0 U/mL (0.0-35.9); Nuclear AG IgG (EBNA) AB >600.0 U/mL (0.0-17.9)
--- NOTE | 2020-03-12 08:38 | CON ---
DATE OF CONSULTATION: HISTORY OF PRESENT ILLNESS: Jason Munoz is a 29-year-old, morbidly obese gentleman, 149 kg, who presented to the ER on 03/09/2020, with symptoms of chest pain. He felt he pulled a muscle. He had fever up to 101 on admission, blood pressure 145/100, respirations 20, saturations are 90% on room air, pulse . He could not tell which side he pulled the muscle, but he had bilateral lower lung chest pain. He had initial serology for coronavirus, which is negative. He has had no sputum production. He is a nonsmoker, occasional drinker. PAST MEDICAL HISTORY: Pertinent for ADHD. PAST SURGICAL HISTORY: Shoulder surgery, appendix, tonsils. ALLERGIES: TO NO MEDICATION. HOME MEDICINE: Includes Adderall. 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 REVIEW OF SYSTEMS: Pertinent for snoring and probably witnessed apnea. PHYSICAL EXAMINATION: VITAL SIGNS: Temperature 99, pulse 100, respirations 21, saturations on 2 L, blood pressure 158/86. CHEST: Decreased breath sounds. No wheezing. CARDIAC: Normal S1 and S2. No gallops. ABDOMEN: No masses. DIAGNOSTIC STUDIES: His initial chest x-ray on admission was normal. His initial CT chest angio was done at the time of admission, which was read as otherwise no PE. CT chest done repeat yesterday, now shows evidence of a small pleural effusion, left greater than right; some atelectatic changes in the left lung; and some pericardial fluid. His white count was elevated at 21,000. Repeat serology was negative for coronavirus, and his chemistry profile shows his lab was unremarkable. ASSESSMENT: Bilateral bronchopneumonia, probably community-acquired. No evidence of pulmonary emboli. Morbid obesity. Probably sleep apnea. PLAN: I agree with present antibiotic coverage, fluid is too small to do a thoracentesis. At this stage, I am going to start him on low-dose steroids for few days. Repeat an x-ray. Unless the fluid become larger, no need to do a thoracentesis. He is encouraged to ambulate in the room. Consultation note 70 minutes, 50% direct patient care. Job ID: [id number]
[2020-03-12] MEDS: cefTRIAXone\\ROCEPHIN 2 GM in Sodium Chloride 0.9% 100 ML IVPB SCH (10:32)
--- NOTE | 2020-03-12 17:17 | PRG ---
DATE OF SERVICE: 03/12/2020 SUBJECTIVE: Feeling better day by day. Able to take deeper breaths. Still with some dyspnea, mostly when he tries to lay back in more recumbent position. No abdominal pain. No diarrhea. No cough. OBJECTIVE: VITAL SIGNS: T-max 99.6, it is now 99.1; BP 140/86, pulse 122, O2 saturations 91% on 2 L. LUNGS: Sounds are diminished at the bases, particularly on the left side. HEART: S1 and S2, regular rate. ABDOMEN: Soft, not distended. LABORATORY DATA: White cell count 21.2, hemoglobin 11.7, platelets 245 with 79% neutrophils. Sodium 135, creatinine 0.84. Alkaline phosphatase 39. Globulin 2.3. Dr. Lafleur saw and evaluated the patient. The effusion was too small for sampling at the moment. ASSESSMENT/DISCUSSION: Obesity, obstructive sleep apnea, pneumonia with left-sided pleural effusion, parapneumonic effusion. COVID has been ruled out effectively, so he is currently on Rocephin and levofloxacin, improving and we will continue for few more days. Follow up chest x-ray tomorrow. Job ID: [id number]
[2020-03-12] MEDS: Enoxaparin Sodium 40 MG/0.4 ML SYRINGE SC SCH (17:54)
[2020-03-13] MEDS: methylPREDNISolone Sod Succ 40 MG VIAL IVP SCH ×2 (01:51→09:01)
[2020-03-13 04:49] LABS: Hemoglobin 11.5 g/dL (14.0-18.0); Platelet Count 302 thou/uL (130-400)
[2020-03-13 05:10] LABS: Calc. Creatinine Clearance 325 mL/min (70-130); Estimated GFR-MDRD Greater than 90
[2020-03-13] MEDS: Enoxaparin Sodium 120 MG/0.8 ML SYRINGE SC SCH ×2 (06:00→17:21)
[2020-03-13] MEDS: Enoxaparin Sodium 40 MG/0.4 ML SYRINGE SC SCH ×2 (06:01→17:21)
[2020-03-13] MEDS ORDERED: Bacteriostatic Water 30 ML VIAL FS PRN (06:07)
--- NOTE | 2020-03-13 06:08 | PDOC.HOSPP ---
- Subjective Encounter Date: 03/12/20 Encounter Time: 10:30 Subjective: pt up in bed states he feels much better today. still has some sob. - Objective Vital Signs & Weight: Vital Signs (12 hours) Temp Pulse Resp BP BP Pulse Ox 03/13/20 02:55 98.2 F 95 20 122/60 92 L 03/12/20 23:13 98.7 F 107 H 18 137/67 92 L 03/12/20 19:11 98.7 F 117 H 24 H 152/77 H 92 L Weight Weight 328 lb 15.933 oz I&O: 03/11/20 03/12/20 03/13/20 06:59 06:59 06:59 Intake Total 4400 6330 2160 Output Total 2850 900 Balance 1550 5430 2160 Result Diagrams: 03/13/20 04:18 03/13/20 04:18 Hospitalist ROS - Review of Systems Respiratory: reports: shortness of breath Cardiovascular: denies: chest pain, palpitations, orthopnea, paroxysmal noc. dyspnea, edema, light headedness, other Gastrointestinal: denies: nausea, vomiting, abdominal pain, diarrhea, constipation, melena, hematochezia, other Genitourinary: denies: dysuria, frequency, incontinence, hematuria, retention, other - Medication Medications: Active Medications Generic Name Dose Route Start Last Admin Trade Name Freq PRN Reason Stop Dose Admin Hydrocodone Bitart/Acetaminophen 1 tab 03/09/20 17:43 03/11/20 23:47 [place] 7.5/325 PO 1 tab Q4H PRN Administration Mild Pain (1-3) Cyclobenzaprine HCl 10 mg 03/09/20 21:00 03/12/20 20:08 Flexeril PO 10 mg TID JUANITA Administration Enoxaparin Sodium 120 mg 03/09/20 18:00 03/13/20 06:00 Lovenox SC 120 mg 0600,1800 JUANITA Administration Enoxaparin Sodium 40 mg 03/12/20 18:00 03/13/20 06:01 Lovenox SC 40 mg 0600,1800 JUANITA Administration Famotidine 20 mg 03/10/20 09:00 03/12/20 20:08 Pepcid PO 20 mg BID JUANITA Administration Ceftriaxone Sodium 2 gm/ 100 mls @ 200 mls/hr 03/11/20 11:00 03/12/20 10:32 Sodium Chloride IVPB 100 mls Q24HR JUANITA Administration Levofloxacin 750 mg/ Device 150 mls @ 100 mls/hr 03/12/20 02:00 03/13/20 01: 51 IVPB 150 mls Q24HR JUANITA Administration Sodium Chloride 10 ml 03/10/20 21:00 03/12/20 20:08 Flush - Normal Saline IVF 10 ml Q12HR JUANITA Administration - Exam Neck: negative: supple, symmetric, no JVD, no thyromegaly, no lymphadenopathy, no carotid bruit, JVD Heart: negative: RRR, no murmur, no gallops, no rubs, normal peripheral pulses, irregular, diminshed peripheral pulses, murmur present, II/IV, III/IV Respiratory - other findings: diminished breaths sounds to bases Gastrointestinal: negative: soft, non-tender, non-distended, normal bowel sounds , no palpable masses, no hepatomegaly, no splenomegaly, no bruit, no guarding, no rigidity, tender to palpation, distended, diminished bowl sounds, voluntary guarding Hosp A/P (1) Sepsis Code(s): A41.9 - SEPSIS, UNSPECIFIED ORGANISM Status: Acute (2) Leukocytosis Code(s): D72.829 - ELEVATED WHITE BLOOD CELL COUNT, UNSPECIFIED Status: Acute (3) Obesity Code(s): E66.9 - OBESITY, UNSPECIFIED Status: Acute (4) Pneumonia Code(s): J18.9 - PNEUMONIA, UNSPECIFIED ORGANISM Status: Acute (5) Empyema Code(s): J86.9 - PYOTHORAX WITHOUT FISTULA Status: Acute - Plan will continue broad spectrum abx. will get a echo, pt's ekg indicates s1q3t3. will repeat cta xu. Doppler negative. pt's chest pain now is dull. 03/[address] not great study to rule out PE. however he now has infiltrate and effusion to left lung. With his elevated wbc possible empyema. will await ID recommendation. echo small effusion. HINA sent. 03/12 pt states he still some sob and pain both have improved. encouraged him to walk in hallway. IS ordered. pulmonary put pt on steroids there is no wheezing will decrease dose from q6 to daily studies done do not indicant any benefit from daily vs q6hr but can have worsening side effects without any added benefit. pt will not under go thoracentesis. will get a ekg since pt did have ekg findings of PE.
[2020-03-13 06:23] LABS: #Lymphocytes 1.1 thou/uL (1.20-3.40); #Monocytes 1.4 thou/uL (0.11-0.59); #Neutrophils 13.5 thou/uL (1.40-6.50); %Eosinophils 0.1 % (0.0-10.0); %Lymphocytes 6.8 % (21.0-51.0); %Monocytes 8.6 % (0.0-10.0); %Neutrophils 84.5 % (42.0-75.0); Hemoglobin 11.5 g/dL (14.0-18.0); Mean Corpuscular Hemoglobin 28.4 pg (27.0-31.0); Mean Corpuscular Volume 94.6 fL (78.0-98.0); Mean Platelet Volume 7.1 fL (7.4-10.4); Platelet Count 298 thou/uL (130-400); RBC Distribution Width 12.3 % (11.5-14.5); Red Blood Cell (RBC) Count 4.06 mill/uL (4.70-6.10)
[2020-03-13] MEDS: Sodium Chloride 0.9% 1,000 ML IV SCH (07:55)
[2020-03-13] MEDS: Famotidine 20 MG TAB PO SCH ×2 (09:02→20:53)
[2020-03-13] MEDS: Cyclobenzaprine 10 MG TAB PO SCH ×3 (09:02→20:53)
--- NOTE | 2020-03-13 11:04 | PRG ---
DATE OF SERVICE: 03/13/2020 SUBJECTIVE: Jason Munoz is a 29-year-old morbidly obese gentleman, who this morning is better, less pleuritic chest pain. OBJECTIVE: VITAL SIGNS: Temperature 97, pulse 103, respirations 21, sats 90% on 2 L, and blood pressure . CHEST: Decreased breath sounds, no wheezing. CARDIAC: Normal S1, S2. No gallops. ABDOMEN: No masses. LABORATORY DATA: White count 62792. ASSESSMENT: Left-sided community-acquired pneumonia with pleurisy and pneumonia at this stage and appeared to be loculated. He is much improved on his steroids. Suggest switching over to oral medicine tomorrow. Antibiotics as per Infectious Disease. Prednisone for 5 days. He will be discharged home any time. Follow up in the office in 2 weeks with a chest x-ray. Job ID: [id number]
--- NOTE | 2020-03-13 11:28 | RAD ---
2 VIEW CHEST: Date: 03/13/2020 INDICATION: Shortness of breath. Pneumonia. COMPARISON: Portable chest dated 03/09/2020. FINDINGS/IMPRESSION: Bilateral effusions, larger on the left. Left basilar infiltrate and atelectasis now noted. Borderlin e cardiomegaly with mild vascular engorgement again noted. POS: AGW
[2020-03-13] MEDS: cefTRIAXone\\ROCEPHIN 2 GM in Sodium Chloride 0.9% 100 ML IVPB SCH (12:02)
[2020-03-13] MEDS ORDERED: Furosemide 40 MG/4 ML VIAL SLOW IVP SCH (16:45)
[2020-03-13] MEDS ORDERED: Magnesium Oxide 400 MG TAB PO SCH (17:00)
[2020-03-13] MEDS ORDERED: Potassium Chloride 20 MEQ TAB PO SCH (17:00)
[2020-03-13] MEDS ORDERED: Furosemide 40 MG TAB PO SCH (17:00)
--- NOTE | 2020-03-13 18:06 | PDOC.HOSPP ---
- Subjective Encounter Date: 03/13/20 Encounter Time: 17:00 Subjective: pt up ambulating around no complains - Objective Vital Signs & Weight: Vital Signs (12 hours) Temp Pulse Resp BP Pulse Ox 03/13/20 15:28 98.1 F 88 20 135/68 92 L 03/13/20 11:52 98.2 F 97 14 145/76 H 95 03/13/20 08:00 92 L 03/13/20 07:39 97.8 F 103 H 21 H 173/85 H 90 L 03/13/20 07:31 92 L Weight Weight 328 lb 15.933 oz I&O: 03/12/20 03/13/20 03/14/20 06:59 06:59 06:59 Intake Total 6330 4442 Output Total 900 Balance 5430 4442 Result Diagrams: 03/14/20 04:34 03/13/20 04:18 Hospitalist ROS - Review of Systems Respiratory: denies: cough, dry, shortness of breath, hemoptysis, SOB with excertion, pleuritic pain, sputum, wheezing, other Cardiovascular: denies: chest pain, palpitations, orthopnea, paroxysmal noc. dyspnea, edema, light headedness, other Gastrointestinal: denies: nausea, vomiting, abdominal pain, diarrhea, constipation, melena, hematochezia, other - Medication Medications: Active Medications Generic Name Dose Route Start Last Admin Trade Name Freq PRN Reason Stop Dose Admin Hydrocodone Bitart/Acetaminophen 1 tab 03/09/20 17:43 03/11/20 23:47 [place] 7.5/325 PO 1 tab Q4H PRN Administration Mild Pain (1-3) Cyclobenzaprine HCl 10 mg 03/09/20 21:00 03/13/20 14:40 Flexeril PO 10 mg TID JUANITA Administration Enoxaparin Sodium 120 mg 03/09/20 18:00 03/13/20 17:21 Lovenox SC 120 mg 0600,1800 JUANITA Administration Enoxaparin Sodium 40 mg 03/12/20 18:00 03/13/20 17:21 Lovenox SC 40 mg 0600,1800 JUANITA Administration Famotidine 20 mg 03/10/20 09:00 03/13/20 09:02 Pepcid PO 20 mg BID JUANITA Administration Furosemide 40 mg 03/13/20 17:00 03/13/20 17:20 Lasix PO 03/13/20 19:00 40 mg NOW JUANITA Administration Magnesium Oxide 400 mg 03/13/20 17:00 03/13/20 17:20 Magnesium Oxide PO 03/13/20 19:00 400 mg NOW JUANITA Administration Methylprednisolone Sodium Succinate 40 mg 03/13/20 09:00 03/13/20 09:01 Solu-Medrol IVP 40 mg DAILY JUANITA Administration Potassium Chloride 40 meq 03/13/20 17:00 03/13/20 17:20 K-Dur PO 03/13/20 19:00 40 meq NOW JUANITA Administration Sodium Chloride 10 ml 03/10/20 21:00 03/13/20 09:01 Flush - Normal Saline IVF 10 ml Q12HR JUANITA Administration Sterile Water 1 ml 03/13/20 06:07 03/13/20 09:01 Bacteriostatic Water FS 1 ml PRN PRN Administration RECONSTITUTION - Exam Neck: negative: supple, symmetric, no JVD, no thyromegaly, no lymphadenopathy, no carotid bruit, JVD Heart: negative: RRR, no murmur, no gallops, no rubs, normal peripheral pulses, irregular, diminshed peripheral pulses, murmur present, II/IV, III/IV Respiratory - other findings: decrease breath sound to bases Hosp A/P (1) Sepsis Code(s): A41.9 - SEPSIS, UNSPECIFIED ORGANISM Status: Acute (2) Leukocytosis Code(s): D72.829 - ELEVATED WHITE BLOOD CELL COUNT, UNSPECIFIED Status: Acute (3) Obesity Code(s): E66.9 - OBESITY, UNSPECIFIED Status: Acute (4) Pneumonia Code(s): J18.9 - PNEUMONIA, UNSPECIFIED ORGANISM Status: Acute (5) Empyema Code(s): J86.9 - PYOTHORAX WITHOUT FISTULA Status: Acute - Plan will continue broad spectrum abx. will get a echo, pt's ekg indicates s1q3t3. will repeat cta xu. Doppler negative. pt's chest pain now is dull. 03/[address] not great study to rule out PE. however he now has infiltrate and effusion to left lung. With his elevated wbc possible empyema. will await ID recommendation. echo small effusion. HINA sent. 03/12 pt states he still some sob and pain both have improved. encouraged him to walk in hallway. IS ordered. pulmonary put pt on steroids there is no wheezing will decrease dose from q6 to daily studies done do not indicant any benefit from daily vs q6hr but can have worsening side effects without any added benefit. pt will not under go thoracentesis. will get a ekg since pt did have ekg findings of PE. 03/13 pt up walking doing well, abx changed to po. will give dose of lasix based on xray. Hesitant to take pt off AC given 2 CTA done which indicated no central PE but suboptimal study.
[2020-03-14 04:55] LABS: #Lymphocytes 1.9 thou/uL (1.20-3.40); #Monocytes 1.7 thou/uL (0.11-0.59); #Neutrophils 14.7 thou/uL (1.40-6.50); %Basophils 0.1 % (0.0-1.0); %Eosinophils 0.2 % (0.0-10.0); %Lymphocytes 10.2 % (21.0-51.0); %Monocytes 9.5 % (0.0-10.0); %Neutrophils 80.1 % (42.0-75.0); Mean Corpuscular HGB CONC 33.3 g/dL (32.0-36.0); Mean Corpuscular Hemoglobin 31.1 pg (27.0-31.0); Mean Corpuscular Volume 93.2 fL (78.0-98.0); Mean Platelet Volume 6.4 fL (7.4-10.4); Platelet Count 334 thou/uL (130-400); RBC Distribution Width 12.2 % (11.5-14.5); Red Blood Cell (RBC) Count 3.55 mill/uL (4.70-6.10); White Blood Cell (WBC) Count 18.4 thou/uL (4.8-10.8)
[2020-03-14] MEDS: Enoxaparin Sodium 40 MG/0.4 ML SYRINGE SC SCH (05:48)
[2020-03-14] MEDS: Enoxaparin Sodium 120 MG/0.8 ML SYRINGE SC SCH (05:48)
[2020-03-14] MEDS ORDERED: Furosemide 40 MG TAB PO SCH (07:30)
[2020-03-14 07:47] VITALS: TEMP 98.1
[2020-03-14] MEDS: Cyclobenzaprine 10 MG TAB PO SCH (07:55)
[2020-03-14] MEDS: Famotidine 20 MG TAB PO SCH (07:55)
[2020-03-14] MEDS: methylPREDNISolone Sod Succ 40 MG VIAL IVP SCH (07:56)
[2020-03-14] MEDS ORDERED: Magnesium Oxide 400 MG TAB PO SCH (09:00)
--- NOTE | 2020-03-14 09:49 | PRG ---
DATE OF SERVICE: 03/14/2020 SUBJECTIVE: Jason Munoz is a 29-year-old morbidly obese gentleman, who is doing better, less pain, less shortness of breath. X-ray taken yesterday showed a small left pleural effusion once again is not large enough to be tapped. OBJECTIVE: VITAL SIGNS: Temperature 98, pulse 66, sats 90% on room air, blood pressure 100/60. CHEST: Decreased breath sounds. No wheezing. CARDIAC: Normal S1, S2. No gallops. ABDOMEN: No masses. ASSESSMENT: Left-sided pneumonia, pleurisy, small pleural effusion, probably parapneumonic. Since the patient is asymptomatic, I suggest reducing his steroids given mainly for the purposes of pleuritic chest pain. I would switch him over to oral prednisone or antibiotics. Discharge any time as per Infectious Disease. Follow up in the office in a week to 10 days to reassess the pleural effusion. Obviously, if he has more chest pain, he may require CT of his chest sooner. Job ID: [id number]
[2020-03-14 11:36] VITALS: BP 128/63
--- NOTE | 2020-03-14 14:29 | PRG ---
DATE OF SERVICE: 03/14/2020 SUBJECTIVE: Standing up in the room as I went inside, feeling better, wanting to go home, very little coughing, no dyspnea on room air, no diarrhea, no abdominal pain, no chest pain. OBJECTIVE: VITAL SIGNS: T-max 98.4 to 98.5, blood pressure 120/60, pulse 68, respirations 18 to 20, and O2 sat 93 on room air. LUNGS: With diminished air entry at the bases, but otherwise no crackles or wheezing. HEART: S1 and S2, regular rate. ABDOMEN: Soft, not distended or tender. EXTREMITIES: Moves extremities equally. No edema. LABORATORY DATA: White cell count with total WBC of 18.4, hemoglobin 11, and platelets 334 with 80% neutrophils. Most of this increase in neutrophils is related to his intake of corticosteroids. The chemistry was not particularly remarkable and the immunoglobulin quantitation showed normal results. The HINA screen was negative. ASSESSMENT AND DISCUSSION: Obesity, obstructive sleep apnea with community-acquired pneumonia due to likely bacterial pathogen with improvement on antimicrobial therapy. The patient, I believe, is ready for discharge planning and COVID-19 has been effectively ruled out. I have advised him to take precautions out there whereby wearing face masks when in public or in areas where there are other persons and within buildings and keep strict hand hygiene because he is in a risk group for serious COVID-19 repercussions and the prevalence in the community is steadily picking up lately. Job ID: [id number]
--- NOTE | 2020-03-14 22:27 | DIS ---
DATE OF ADMISSION: 03/09/2020 DATE OF DISCHARGE: 03/14/2020 DISCHARGE DIAGNOSES: As of the followin. Sepsis secondary to pneumonia. 2. Left lower lung pneumonia most likely community-acquired. 3. Leukocytosis persistent possible concerns for empyema. 4. Sinus tachycardia. 5. Obesity. 6. Prolonged QTc. 7. Left thyroid lobe nodule. The patient was notified that he is going to follow up with his primary for that. HOSPITAL COURSE: The patient is a 29-year-old male, who initially presented to the hospital on 03/09 with complaints of chest pain and shortness of breath. He underwent a CTA initially, which was normal for any sort of infectious processes. However, it was suboptimal for ruling out PE. At this time, patient had venous Dopplers which were negative. He did have some EKG changes of S1Q3T3 and given the fact that there was no infectious etiology for him, he was started on Lovenox for possible PE. His D-dimer was mildly elevated at 0.50. Also, he was a COVID rule out and had been negative x2 through the hospital. The only thing he had during admission was leukocytosis and fever. The patient had a repeat scan a couple days after admission and the repeat CTA indicated significant left lower lung pneumonia. At this time, the patient was started on broad-spectrum antibiotics and Infectious Disease was consulted. Strep pneumonia was negative. The patient had persistent leukocytosis and at this time because of that, Pulmonology was consulted for possible thoracentesis. However, the recommendation was his fluid level was too less to be aspirated, so he was treated clinically. The patient's symptoms continued to improve through the hospital stay. The patient is obese and most likely has sleep apnea. His EKG changes could have been secondary to his obesity, cor pulmonale, or right heart strain. His repeat CT also was suboptimal in terms of pulmonary embolism. However, given his low D-dimer, his negative lower extremity Dopplers and possible S1Q3T3 being caused by his cor pulmonale or sleep apnea, I discontinued the Lovenox. The patient was noted to have some prolonged QTc. I have advised him to follow up with an EKG on Tuesday, initially it was 574. He did receive Levaquin after that and a repeat EKG prior to discharge was 531. I have advised the patient to come into the hospital if he starts having any pain or fever or any shortness of breath. He will be discharged home. He will follow up with his primary. The patient also was asked to follow up with Pulmonology for repeat chest x-ray to make sure that has cleared. Also, he has been notified about his hepatomegaly and hepatic steatosis and did discuss weight loss. He did have an echocardiogram, which indicated a small trivial pericardial effusion. MEDICATIONS: The patient's discharge home medications are going to be: 1. Prednisone. 2. He takes Adderall and Levaquin. PHYSICAL EXAMINATION: VITAL SIGNS: His discharge vitals are 98.1, 68, 20, 93% on room air, 130/60. GENERAL: He is awake, alert, and oriented x3. Does not appear in distress. CV: S1, S2 present. No murmurs, rubs, or gallops. Again, he will be discharged home to follow up with his primary and follow up with Pulmonology. Job ID: [id number]
[2020-03-15] MEDS ORDERED: predniSONE 20 MG TAB PO SCH (08:00)
--- NOTE | 2020-03-16 15:21 | EKG ---
Test Reason : STAT Blood Pressure : / mmHG Vent. Rate : 103 BPM Atrial Rate : 103 BPM P-R Int : 142 ms QRS Dur : 094 ms QT Int : 332 ms P-R-T Axes : 036 067 013 degrees QTc Int : [address] elevation, consider early repolarization, pericarditis, or injury Abnormal ECG When compared with ECG of 09-MAR-2020 12:39, (Unconfirmed) Sinus rhythm has replaced Atrial flutter ST elevation now present in Anterolateral leads T wave inversion less evident in Inferior leads T wave inversion no longer evident in Lateral leads Confirmed by NORMA NEELY (2) on 03/16/2020 3:20:55 PM Referred By: MAY Confirmed By:NORMA NEELY
--- NOTE | 2020-03-16 16:16 | EKG ---
Test Reason : Blood Pressure : / mmHG Vent. Rate : 087 BPM Atrial Rate : 087 BPM P-R Int : 146 ms QRS Dur : 102 ms QT Int : 476 ms P-R-T Axes : 053 066 -06 degrees QTc Int : 572 ms Normal sinus rhythm ST elevation consider lateral injury or acute infarct Prolonged QT * ACUTE OR * Abnormal ECG When compared with ECG of 09-MAR-2020 22:00, (Unconfirmed) QT has lengthened Confirmed by NORMA NEELY (2) on 03/16/2020 4:16:06 PM Referred By: [email or web address] Confirmed By:NORMA NEELY
--- NOTE | 2020-03-16 16:36 | EKG ---
Test Reason : Blood Pressure : / mmHG Vent. Rate : 069 BPM Atrial Rate : 069 BPM P-R Int : 154 ms QRS Dur : 104 ms QT Int : 496 ms P-R-T Axes : 049 069 -02 degrees QTc Int : 531 ms Normal sinus rhythm with sinus arrhythmia ST elevation, consider early repolarization, pericarditis, or injury Abnormal QRS-T angle, consider primary T wave abnormality Prolonged QT Abnormal ECG When compared with ECG of 13-MAR-2020 12:06, (Unconfirmed) No significant change was found Confirmed by NORMA NEELY (2) on 03/16/2020 4:35:50 PM Referred By: [email or web address] Confirmed By:NORMA NEELY
[2020-03-17 14:38] LABS: Activated Protein C Resistance 2.6 ratio (.)
== END 2020-03-14 15:58 | disposition home or self-care (01) | DRG 871 ==
LOC: ERS 12:25 → 2SW 15:11
PROVIDERS: ADMIT Internal Medicine; ATTEND Internal Medicine
PROC: 8E0ZXY6 Isolation (ICD-10-PCS; principal; 2020-03-09)
DX: A41.9 Sepsis, unspecified organism (principal); J15.9 Unspecified bacterial pneumonia; J86.9 Pyothorax without fistula; J90 Pleural effusion, not elsewhere classified; Z68.41 Body mass index [BMI] 40.0-44.9, adult; Z20.828 Contact with and (suspected) exposure to other viral communicable diseases; F90.9 Attention-deficit hyperactivity disorder, unspecified type; R94.31 Abnormal electrocardiogram [ECG] [EKG]; E66.01 Morbid (severe) obesity due to excess calories; G47.33 Obstructive sleep apnea (adult) (pediatric); Z91.040 Latex allergy status; Z90.49 Acquired absence of other specified parts of digestive tract
CPT/HCPCS: 36415; 36416; 71045; 71046; 71275; 80053; 80202; 80306; 81003; 81240; 81241; 82565; 83090; 83605; 83690; 83735; 83880; 84443; 84484; 85014; 85018; 85025; 85049; 85240; 85300; 85303; 85305; 85307; 85379; 85598; 85610; 85730; 86038; 86140; 86147; 86160; 86225; 86664; 86665; 87040; 87086; 87449; 87633; 87635; 87804; 93005; 93010; 93306; 93970; 94760; 96361; 96365; 96367; J0456; J0696; J1650; J1956; J2270; J2543; J2920; J3370; J3490; J7030; Q9967; U0003

== ENCOUNTER 2022-03-18 19:30 | Outpatient (CLI) | payer BC | END 2022-03-18 19:31 | disposition home or self-care (01) | LOC: SLEEPLAB 19:30 | PROVIDERS: ATTEND Family Medicine | DX: G47.33 Obstructive sleep apnea (adult) (pediatric) (principal); G47.00 Insomnia, unspecified; F90.9 Attention-deficit hyperactivity disorder, unspecified type | CPT/HCPCS: 95800 ==

== ENCOUNTER 2022-07-01 17:00 | Outpatient (CLI) | payer BC | END 2022-07-01 17:01 | disposition home or self-care (01) | LOC: SLEEPLAB 17:00 | PROVIDERS: ATTEND Family Medicine | DX: G47.33 Obstructive sleep apnea (adult) (pediatric) (principal) | CPT/HCPCS: 95811 ==

== ENCOUNTER 2023-10-05 09:25 | Outpatient (CLI) | payer BC | END 2023-10-05 09:26 | disposition home or self-care (01) | LOC: BICMRI 09:25 | PROVIDERS: ATTEND Orthopaedic Surgery | DX: M23.91 Unspecified internal derangement of right knee (principal); S83.221A Peripheral tear of medial meniscus, current injury, right knee, initial encounter; S83.271A Complex tear of lateral meniscus, current injury, right knee, initial encounter; M25.861 Other specified joint disorders, right knee ==